=== PATIENT | female | born 1955 | race Native Hawaiian/Other Pacific Islander ===

== ENCOUNTER 2018-10-10 15:29 | Outpatient (CLI) | payer BC, OTHER | END 2018-10-10 23:30 | disposition home or self-care (01) | LOC: RESP 15:29 | DX: M50.10 Cervical disc disorder with radiculopathy, unspecified cervical region (principal); G03.9 Meningitis, unspecified ==

== ENCOUNTER 2018-11-14 07:59 | Day surgery (SDC) | payer BC, OTHER ==
[~2018-11-14] VITALS: Ht 152.4 cm; Wt 52.2 kg
[2018-11-14 09:37] LABS: PLATELET COUNT 303 K/uL (152-353)
[2018-11-14 09:59] LABS: PARTIAL THROMBOPLASTIN TIME 26.1 SECONDS (24.5-33.6)
[2018-11-14 10:12] LABS: POTASSIUM 3.9 mmol/L (3.6-5.2)
== END 2018-11-14 13:40 | disposition home or self-care (01) ==
LOC: OR 07:59
PROVIDERS: Pain Medicine Interventional Pain Medicine
PROC: 00HU3MZ Insertion of Neurostimulator Lead into Spinal Canal, Percutaneous Approach (ICD-10-PCS; principal; 2018-11-14)
PROC: 4B01XVZ Measurement of Peripheral Nervous Stimulator, External Approach (ICD-10-PCS; 2018-11-14)
DX: M54.12 Radiculopathy, cervical region (principal); M54.16 Radiculopathy, lumbar region; G03.9 Meningitis, unspecified; Z79.891 Long term (current) use of opiate analgesic; Z51.81 Encounter for therapeutic drug level monitoring
CPT/HCPCS: 80053; 85027; 85610; 85730; 93005; C1897; J2001; J2250; J2405; J2704; J2765; J3010; J3490

== ENCOUNTER 2018-11-21 08:57 | Day surgery (SDC) | payer BC, OTHER | END 2018-11-21 11:05 | disposition home or self-care (01) | LOC: OR 08:57 | PROC: 00PU3MZ Removal of Neurostimulator Lead from Spinal Canal, Percutaneous Approach (ICD-10-PCS; principal; 2018-11-21) | DX: M54.12 Radiculopathy, cervical region (principal); M54.16 Radiculopathy, lumbar region; G03.9 Meningitis, unspecified ==